=== PATIENT | male | born 1990 | race Caucasian/White ===

== ENCOUNTER 2018-07-15 13:34 | Emergency (ER) | payer MEDICAID ==
[~2018-07-15] VITALS: Ht 185.4 cm; Wt 79.4 kg
[~2018-07-15 13:34] MED LIST: CEPH500 PO; CODGUAEL PO; CRUTCH4 USE; CYCL10 PO; ERYT.5TO OS; HYDACE5 PO; HYDACE5325 PO; IBUP600 PO; IBUP800 PO; NAPR500 PO; OXYACE5T PO; PENVK500 PO; QUET100; RXHYD5325 PO
== END 2018-07-15 14:50 | disposition home or self-care (01) ==
LOC: ER 13:34
DX: S61.011A Laceration without foreign body of right thumb without damage to nail, initial encounter (principal); S61.300A Unspecified open wound of right index finger with damage to nail, initial encounter; S61.304A Unspecified open wound of right ring finger with damage to nail, initial encounter; Z23 Encounter for immunization; F17.200 Nicotine dependence, unspecified, uncomplicated; Z91.018 Allergy to other foods; W25.XXXA Contact with sharp glass, initial encounter
CPT/HCPCS: 90471; 90714; 99282

== ENCOUNTER 2018-12-28 00:10 | Emergency (ER) | payer OTHER ==
[~2018-12-28] VITALS: Ht 188 cm; Wt 81.7 kg
[2018-12-28] MEDS ORDERED: QUET100 PO (00:39)
[2018-12-28] MEDS ORDERED: AMPDEX30CR (00:39)
[2018-12-28] MEDS ORDERED: Bactrim Ds Tab1 EACH PO (01:09)
[2018-12-28] MEDS ORDERED: CEPH500 PO (01:09)
== END 2018-12-28 01:50 | disposition home or self-care (01) ==
LOC: ER 00:10
DX: L03.011 Cellulitis of right finger (principal); F41.9 Anxiety disorder, unspecified; Z91.018 Allergy to other foods; Z79.899 Other long term (current) drug therapy; F17.200 Nicotine dependence, unspecified, uncomplicated
CPT/HCPCS: 64450; 73140; 99283-25

== ENCOUNTER 2025-08-06 23:49 | Emergency (ER) | payer OTHER ==
[~2025-08-06] VITALS: Ht 185.4 cm; Wt 104.1 kg
[~2025-08-06 23:49] MED LIST changes: +AMPDEX30CR; +Bactrim Ds Tab1 EACH PO; +ESCI5; +MIRT15; +QUET100 PO
[2025-08-07 00:08] VITALS: BP 145/97
[2025-08-07 03:45] LABS: Chlamydia Trachomatis Urine NOT DETECTED (NOT DETECT); Neisseria Gonorrhoea Urine NOT DETECTED (NOT DETECT)
[2025-08-09 01:10] LABS: HCV QNT BY NAAT (IU/ML) Not Detected; HCV QNT BY NAAT (LOG IU/ML) Not Detected; HCV QNT BY NAAT INTERP Not Detected (Not Detected)
[2025-08-09 10:59] LABS: HEPATITIS B SURFACE ANTIBODY 4.0 IU/L
[2025-08-09 11:32] LABS: HBV CORE ANTIBODIES,TOTAL Negative (Negative)
[2025-08-09 19:49] LABS: HIV 1,2 COMBO ANTIGEN/ANTIBODY Negative
== END 2025-08-07 01:43 | disposition home or self-care (01) ==
LOC: ER 23:49
PROVIDERS: Emergency Medicine
DX: Z11.3 Encounter for screening for infections with a predominantly sexual mode of transmission (principal); F17.200 Nicotine dependence, unspecified, uncomplicated; Z79.899 Other long term (current) drug therapy; Z91.018 Allergy to other foods
CPT/HCPCS: 86592; 86704; 87340; 87389; 87491; 87522; 87591; 99283